=== PATIENT | female | born 1980 | race Two or more races ===

== ENCOUNTER 2024-10-05 00:03 | Emergency (ER) | payer BC ==
[~2024-10-05] VITALS: Ht 167.6 cm; Wt 99.8 kg
[2024-10-05 00:15] VITALS: BP 101/66; O2SAT 100
[2024-10-05] MEDS ORDERED: KETOROLAC TROMETHAMINE 60 MG VIAL IM STA (01:35)
[2024-10-05] MEDS ORDERED: TETANUS & DIPHTHERIA TOX,ADULT 0.5 ML VIAL IM STA (01:36)
[2024-10-05] MEDS ORDERED: KETO10TA2 PO (03:25)
[2024-10-05] MEDS ORDERED: CLEOCIN HCL150 MG PO (03:25)
== END 2024-10-05 03:31 ==
LOC: ER 00:56
DX: G89.11 Acute pain due to trauma (principal); R51.9 Headache, unspecified; M54.50 Low back pain, unspecified; I10 Essential (primary) hypertension; Z88.1 Allergy status to other antibiotic agents
CPT/HCPCS: 70250; 72040; 72100; 73590; 90471; 90714; J1670